=== PATIENT | female | born 1975 | race Caucasian/White ===

== ENCOUNTER 2020-07-17 13:41 | Emergency (ER) | payer BC ==
[~2020-07-17 13:41] MED LIST: ACTOS15 MG PO; ATIVAN1 MG PO; CALCIUM500 MG PO; DECADRON6 MG PO; GLUCOPHAGE500 MG PO; HYDROCHLOROTHIA25 MG PO; MEDROL DOSEPAK 24 MG PO; OXYCODONE HCL5 MG PO; PHENERGAN 12.12.5 M1 PO; PROVENTIL HFA6.7 GM INH; VICTOZA 1818 MG/3 ML SC; VITAMIN B-121000 MC3 PO; VITAMIN C1000 MG PO; VITAMIN D350 MC3 PO; VITAMIN E400 UNI4 PO; XGEVA 120120 MG/1.7 SC; [UNRECOGNIZED DRUG - OTHER]; [UNRECOGNIZED DRUG - OTHER] PO
[2020-07-17 15:08] LABS: HEMOGLOBIN 10.7 gm/dl (12.3-15.3); RED BLOOD COUNT 3.21 M/UL (4.00-5.10); WHITE BLOOD COUNT 4.3 K/UL (4.5-11.0)
[2020-07-17 15:31] LABS: BUN/CREATININE RATIO 23 (0-10)
== END 2020-07-17 20:19 | disposition home or self-care (01) ==
LOC: ER1 13:41
PROVIDERS: Emergency Medicine
DX: R07.89 Other chest pain (principal); I10 Essential (primary) hypertension; Z85.3 Personal history of malignant neoplasm of breast
CPT/HCPCS: 71045; 80053; 82550; 82553; 83735; 83874; 83880; 84484; 85025; 85379; 93005; 99285; Q9967

== ENCOUNTER 2020-11-23 21:11 | Emergency (ER) | payer BC ==
[2020-11-23 22:06] LABS: HEMOGLOBIN 11.1 gm/dl (12.3-15.3); RED BLOOD COUNT 3.11 M/UL (4.00-5.10); WHITE BLOOD COUNT 4.3 K/UL (4.5-11.0)
[2020-11-23 22:11] LABS: BUN/CREATININE RATIO 11 (0-10)
== END 2020-11-23 23:00 | disposition home or self-care (01) ==
LOC: ER1 21:11
PROVIDERS: Student in an Organized Health Care Education/Training Program
DX: R55 Syncope and collapse (principal); F41.9 Anxiety disorder, unspecified; E87.6 Hypokalemia; E11.9 Type 2 diabetes mellitus without complications; Z85.3 Personal history of malignant neoplasm of breast
CPT/HCPCS: 70470; 71045; 80053; 81001; 82550; 82553; 83874; 84484; 85025; 93005; 99285; Q9967

== ENCOUNTER 2021-10-14 21:29 | Emergency (ER) | payer BC | END 2021-10-14 23:37 | disposition left against medical advice (07) | LOC: ER1 21:29 | DX: Z53.21 Procedure and treatment not carried out due to patient leaving prior to being seen by health care provider (principal) ==